=== PATIENT | male | born 1940 | race Caucasian/White ===

== ENCOUNTER → 2017-10-21 | Outpatient (CLI) | payer MEDICARE, OTHER ==
[2016-11-03 12:42] VITALS: BMI 30.6
[~2017-10-21] MED LIST: ACE325 PO; B2/V1TAB5 PO; BACDS PO; BRIM5DRO8 OU; CHOL10005 PO; GLUC1TAB13 PO; IBU200 PO; LEV75 PO; LOR5/325 PO; LOSA50TA72 PO; MET10 PO; METO-253 PO; MULT-1335 PO; MULT1TAB54 PO; OND4 PO; OSTEOBIFLEX PO; PAN40 PO; WAR25; WAR25 PO; WAR5 PO; [UNRECOGNIZED DRUG - CODE] PO
[2017-10-21 17:31] LABS: INR 2.33
== END ==
LOC: LAB 17:01
PROVIDERS: ATTEND Family Medicine
DX: I48.0 Paroxysmal atrial fibrillation (principal)
CPT/HCPCS: 36415; 85610

== ENCOUNTER 2017-11-26 18:04 | Emergency (ER) | payer MEDICARE, OTHER ==
[2016-11-03 12:42] VITALS: Wt 104.3 kg
[~2017-11-26 18:04] MED LIST changes: -MECL25TA9 PO; -ONDA4TAB PO; -SCOP1PAT16 TD; -SOTA120T25 PO; -SULF-198 PO
--- NOTE | 2017-11-26 18:25 | ER Report ---
History and Physical Time Seen By MD: 18:05 Hx. of Stated Complaint: sudden onset extreme nausea and diaphoresis and dizziness HPI/ROS CHIEF COMPLAINT: dizziness, nausea and vomiting HISTORY OF PRESENT ILLNESS: This is a 77 year old male. He was feeling okay earlier today. This afternoon sudden onset of dizziness. This is a vertigo type dizziness which is worse with position change and worse with tuning head from side to side. Diaphoresis, nausea and vomiting. He feels short of breath with this. He denies any chest pain. No vision changes. He has mild headache. No fevers or recent illness. He is on Warfarin for chronic Atrial fibrillation. Has been seeing urology for evaluation or bladder cancer and recurrent bladder masses, had surgery on Wednesday. REVIEW OF SYSTEMS: Constitutional: [No fever or chills.] Eyes: [No discharge.] [No vision changes.] ENT: [No sore throat.] [No congestion.] [No hearing changes.] Cardiovascular: [No chest pain.] [No palpitations.] Respiratory: [No cough.] [No shortness of breath.] Gastrointestinal: [No abdominal pain.] [No nausea or vomiting.] [No change in bowel movements.] [No blood in the stool or melena.] Genitourinary: [No dysuria.] [No hematuria.] [No frequency] Musculoskeletal: [No back pain.] [No extremity pain.] Skin: [No rashes.] [No bruising.] Neurological: [No numbness.] [No weakness.] [No headache.] Allergies: Coded Allergies: Penicillins (Verified Allergy, Mild, HIVES, 07/17/17) Home Meds Active Scripts Ondansetron (ZOFRAN ODT) 4 Mg Tab.rapdis, 4 MG PO Q6H Y for NAUSEA/VOMITING, # 20 TAB.GLEN 0 Refills Prov:PAM COVINGTON MD 11/26/17 Scopolamine (Scopolamine) 1 Mg/3 Day Patch.td.3, 1 PATCH.72H TD Q3D Y for DIZZINESS, #5 PATCH.72H 0 Refills Prov:PAM COVINGTON MD 11/26/17 Meclizine Hcl (MECLIZINE HCL) 25 Mg Tablet, 25 MG PO Q8H Y for DIZZINESS, #20 TAB 0 Refills Prov:PAM COVINGTON MD 11/26/17 Sulfamethoxazole/Trimet 800-160 Mg Tab (BACTRIM DS TABLET) 1 Each Tablet, 1 TAB PO Q12H, #10 TAB 0 Refills Prov:PAM COVINGTON MD 11/26/17 Metoprolol Tartrate (METOPROLOL TARTRATE) 50 Mg Tab, 50 MG PO BID, #60 TAB Prov:VIDYAJANN DO 11/04/16 Reported Medications Sotalol Hcl (SOTALOL) 120 Mg Tablet, 120 MG PO 11/26/17 Losartan Potassium (LOSARTAN POTASSIUM) 50 Mg Tablet, 50 MG PO QDAY 07/17/17 Cholecalciferol (Vitamin D3) (VITAMIN D3) 1,000 Unit Tablet, 2000 UNIT PO QDAY, TAB 11/09/16 Multivitamin (MULTI-VITAMIN DAILY) 1 Each Tablet, 1 EACH PO QDAY 11/02/16 Brimonidine Tartrate 0.2% Drops (BRIMONIDINE TARTRATE 0.2% DROPS) 5 Ml Drops, 1 ML OU TID, ML 11/02/16 B2/Vit A,C & E/Lut/Zeaxanth/Mn (Icaps Tablet) 1 Tab.sa Tablet.sa, 1 TAB.SA PO DAILY, 0 Refills 09/21/09 Warfarin Sod (Coumadin (Or Equiv)) 2.5 Mg Tab, 2.5 MG PO QDAY, 0 Refills 09/21/09 Levothyroxine Sodium (Synthroid/Levothroid) 0.075 Mg Tab, 0.075 MG PO QDAY 09/21/09 Reviewed Nurses Notes: Yes Smoking Status: Former Smoker Hx Substance Use Disorder: No Hx Alcohol Use: Yes Constitutional Vital Sign - Last 24 Hours 11/26/17 11/26/17 11/26/17 11/26/17 18:06 18:08 18:14 18:19 Temp 97.4 Pulse 86 98 Resp 18 B/P (MAP) 160/127 137/128 (131) 160/127 (138) Pulse Ox 97 96 O2 Delivery Room Air 11/26/17 11/26/17 11/26/17 11/26/17 18:24 18:27 18:34 18:44 Pulse 95 99 ??? Resp 18 13 B/P (MAP) 142/106 (118) Pulse Ox 95 94 311/26/17 11/26/17 11/26/17 18:49 18:54 19:04 19:14 Pulse ? 102 Resp 19 B/P (MAP) 162/110 (127) Pulse Ox 96 O2 Flow Rate 2.0 11/26/17 11/26/17 11/26/17 11/26/17 19:24 19:29 19:44 19:52 Pulse 85 111 101 Resp 12 17 8 B/P (MAP) 169/130 (143) Pulse Ox 95 97 93 11/26/17 11/26/17 11/26/17 11/26/17 19:54 19:59 20:00 20:14 Pulse 112 98 Resp 19 16 B/P (MAP) 139/80 (99) 142/117 (125) Pulse Ox 96 11/26/17 11/26/17 11/26/17 11/26/17 20:20 20:25 20:30 20:35 Pulse 105 107 Resp 15 15 B/P (MAP) 149/87 (107) 144/108 (120) Pulse Ox 97 96 11/26/17 11/26/17 11/26/17 11/26/17 20:45 20:55 21:00 21:02 Pulse 109 104 Resp 13 21 B/P (MAP) 145/116 (126) 119/94 (102) 124/78 (93) Pulse Ox 96 96 11/26/17 11/26/17 11/26/17 11/26/17 21:04 21:05 21:15 21:25 Pulse 68 80 74 Resp 16 11 15 B/P (MAP) 131/82 (98) 140/91 (107) Pulse Ox 96 94 96 11/26/17 11/26/17 11/26/17 21:27 21:30 21:45 Temp 97.4 Pulse 76 77 Resp 15 14 B/P (MAP) 121/61 (81) 116/59 (78) Pulse Ox 96 96 Intake and Output 11/26/17 11/26/17 11/27/17 15:00 23:00 07:00 Intake Total 1000 ml Balance 1000 ml Physical Exam General Appearance: The patient is alert. He is in acute distress due to the nausea and dizziness. Eyes: Pupils are equal, round. Reactive to light. No pallor, injection or icterus. Extraocular movements are intact. No nystagmus noted. ENT: Mucous membranes are moist. Normal oral mucosa. Posterior oropharynx is normal. Normal tympanic membranes and canals. Neck: Supple and non tender. No lymphadenopathy. Respiratory: Breathing easily and unlabored. Lungs are clear to auscultation. Cardiovascular: Regular rate and rhythm. No murmurs, gallops or rubs. Normal capillary refill. No edema. Gastrointestinal: Abdomen is soft, diffuse discomfort. Nondistended. Normal active bowel sounds. No costovertebral angle tenderness with percussion. Neurological: Alert and oriented x3. Cranial nerves with eye exam as noted above. Midline tongue, symmetric palate elevation. No facial droop. Normal sensation. No numbness or weakness in the extremities. Dizziness is a vertigo component. Worsens with turning head to the side or sitting up or laying back. [ ] Skin: Warm and dry. No rashes. Musculoskeletal: Extremities are nontender. No tenderness in palpation of the cervical, thoracic and lumbar spine. DIFFERENTIAL DIAGNOSIS: After history and physical exam, differential diagnosis was considered for dizziness including but not limited to peripheral and central causes of vertigo, orthostatic causes including dehydration, and blood loss. Also with elevated blood pressure. Has not taken evening medications ( Metoprolol and Sotalol). Will watch pressures and determine if dizziness is due to hypotension or orthostasis prior to giving these medicines. Medical Decision Making Data Points Result Diagram: 11/26/17 1800 11/26/17 1800 Laboratory Hematology Test 11/26/17 18:00 11/26/17 19:55 Red Blood Count 5.39 M/uL (4.00-5.60) Mean Corpuscular Volume 93.0 fL (80.0-96.0) Mean Corpuscular Hemoglobin 31.8 pg (26.0-33.0) Mean Corpuscular Hemoglobin Concent 34.2 g/dL (32.0-36.0) Red Cell Distribution Width 14.2 % (11.5-14.5) Mean Platelet Volume 9.3 fL (7.2-11.1) Neutrophils (%) (Auto) 52.2 % (39.4-72.5) Lymphocytes (%) (Auto) 33.9 % (17.6-49.6) Monocytes (%) (Auto) 12.2 % (4.1-12.4) Eosinophils (%) (Auto) 1.4 % (0.4-6.7) Basophils (%) (Auto) 0.3 % (0.3-1.4) Nucleated RBC Relative Count (auto) 0.0 /100WBC Neutrophils # (Auto) 4.2 K/uL (2.0-7.4) Lymphocytes # (Auto) 2.7 K/uL (1.3-3.6) Monocytes # (Auto) 1.0 K/uL (0.3-1.0) Eosinophils # (Auto) 0.1 K/uL (0.0-0.5) Basophils # (Auto) 0.0 K/uL (0.0-0.1) Nucleated RBC Absolute Count (auto) 0.00 K/uL Prothrombin Time 22.6 seconds (12.0-14.4) Prothromb Time International Ratio 1.94 Activated Partial Thromboplast Time 31 seconds (23-35) Sodium Level 141 mmol/L (137-145) Potassium Level 4.6 mmol/L (3.5-5.0) Chloride Level 108 mmol/L (98-107) Carbon Dioxide Level 21 mmol/L (22-30) Blood Urea Nitrogen 21 mg/dl (9-21) Creatinine 1.20 mg/dl (0.66-1.25) Glomerular Filtration Rate Calc 58.4 Random Glucose 109 mg/dl (75-110) Calcium Level 8.9 mg/dl (8.4-10.2) Total Bilirubin 0.6 mg/dl (0.2-1.3) Aspartate Amino Transf (AST/SGOT) 36 U/L (0-35) Alanine Aminotransferase (ALT/SGPT) 38 U/L (0-56) Alkaline Phosphatase 81 U/L (0-126) Troponin I < 0.012 ng/ml Total Protein 6.9 gm/dl (6.3-8.2) Albumin 3.6 g/dl (3.5-5.0) Amylase Level 93 U/L (0-110) Lipase 104 U/L (23-300) Urine Color Yellow Urine Clarity Clear Urine pH 7.0 pH (4.8-9.5) Urine Specific [place] 1.034 Urine Protein Negative mg/dL (NEGATIVE) Urine Glucose (UA) Negative mg/dL (NEGATIVE) Urine Ketones Trace mg/dL (NEGATIVE) Urine Blood Moderate (NEGATIVE) Urine Nitrite Negative (NEGATIVE) Urine Bilirubin Negative (NEGATIVE) Urine Urobilinogen Negative mg/dL (0.2-1.9) Urine Leukocyte Esterase Negative (NEGATIVE) Urine RBC 12 /HPF (0-2/HPF) Urine WBC 3 /HPF (0-5/HPF) Urine Squamous Epithelial Cells Few /LPF (</=FEW) Urine Bacteria Negative /HPF (NONE-FEW) Urine Mucus None /HPF (NONE-FEW) Chemistry Test 11/26/17 18:00 11/26/17 19:55 White Blood Count 8.0 k/uL (4.5-11.0) Red Blood Count 5.39 M/uL (4.00-5.60) Hemoglobin 17.1 g/dL (14.0-18.0) Hematocrit 50.1 % (42.0-52.0) Mean Corpuscular Volume 93.0 fL (80.0-96.0) Mean Corpuscular Hemoglobin 31.8 pg (26.0-33.0) Mean Corpuscular Hemoglobin Concent 34.2 g/dL (32.0-36.0) Red Cell Distribution Width 14.2 % (11.5-14.5) Platelet Count 146 K/uL (150-450) Mean Platelet Volume 9.3 fL (7.2-11.1) Neutrophils (%) (Auto) 52.2 % (39.4-72.5) Lymphocytes (%) (Auto) 33.9 % (17.6-49.6) Monocytes (%) (Auto) 12.2 % (4.1-12.4) Eosinophils (%) (Auto) 1.4 % (0.4-6.7) Basophils (%) (Auto) 0.3 % (0.3-1.4) Nucleated RBC Relative Count (auto) 0.0 /100WBC Neutrophils # (Auto) 4.2 K/uL (2.0-7.4) Lymphocytes # (Auto) 2.7 K/uL (1.3-3.6) Monocytes # (Auto) 1.0 K/uL (0.3-1.0) Eosinophils # (Auto) 0.1 K/uL (0.0-0.5) Basophils # (Auto) 0.0 K/uL (0.0-0.1) Nucleated RBC Absolute Count (auto) 0.00 K/uL Prothrombin Time 22.6 seconds (12.0-14.4) Prothromb Time International Ratio 1.94 Activated Partial Thromboplast Time 31 seconds (23-35) Glomerular Filtration Rate Calc 58.4 Calcium Level 8.9 mg/dl (8.4-10.2) Total Bilirubin 0.6 mg/dl (0.2-1.3) Aspartate Amino Transf (AST/SGOT) 36 U/L (0-35) Alanine Aminotransferase (ALT/SGPT) 38 U/L (0-56) Alkaline Phosphatase 81 U/L (0-126) Troponin I < 0.012 ng/ml Total Protein 6.9 gm/dl (6.3-8.2) Albumin 3.6 g/dl (3.5-5.0) Amylase Level 93 U/L (0-110) Lipase 104 U/L (23-300) Urine Color Yellow Urine Clarity Clear Urine pH 7.0 pH (4.8-9.5) Urine Specific [place] 1.034 Urine Protein Negative mg/dL (NEGATIVE) Urine Glucose (UA) Negative mg/dL (NEGATIVE) Urine Ketones Trace mg/dL (NEGATIVE) Urine Blood Moderate (NEGATIVE) Urine Nitrite Negative (NEGATIVE) Urine Bilirubin Negative (NEGATIVE) Urine Urobilinogen Negative mg/dL (0.2-1.9) Urine Leukocyte Esterase Negative (NEGATIVE) Urine RBC 12 /HPF (0-2/HPF) Urine WBC 3 /HPF (0-5/HPF) Urine Squamous Epithelial Cells Few /LPF (</=FEW) Urine Bacteria Negative /HPF (NONE-FEW) Urine Mucus None /HPF (NONE-FEW) Coagulation Test 11/26/17 18:00 Prothrombin Time 22.6 seconds Prothromb Time International Ratio 1.94 Activated Partial Thromboplast Time 31 seconds Urinalysis Test 11/26/17 19:55 Urine Color Yellow Urine Clarity Clear Urine pH 7.0 pH (4.8-9.5) Urine Specific [place] 1.034 Urine Protein Negative mg/dL (NEGATIVE) Urine Glucose (UA) Negative mg/dL (NEGATIVE) Urine Ketones Trace mg/dL (NEGATIVE) Urine Blood Moderate (NEGATIVE) Urine Nitrite Negative (NEGATIVE) Urine Bilirubin Negative (NEGATIVE) Urine Urobilinogen Negative mg/dL (0.2-1.9) Urine Leukocyte Esterase Negative (NEGATIVE) Urine RBC 12 /HPF (0-2/HPF) Urine WBC 3 /HPF (0-5/HPF) Urine Squamous Epithelial Cells Few /LPF (</=FEW) Urine Bacteria Negative /HPF (NONE-FEW) Urine Mucus None /HPF (NONE-FEW) EKG/Imaging EKG Interpretation 12 lead EKG: Rhythm: Atrial fibrillation, rate 90, one PVC [place]: normal QRS: Prolonged QTC ST segments: Nonspecific flattening, no ST elevation or depression noted Imaging CHEST SINGLE AP Indication: Dizziness. Comparison: 07/17/2017. Findings: Cardiomediastinal silhouette and pulmonary vessels within normal limits. Left subclavian pacemaker remains in place and unchanged. There is no focal infiltrate or lobar consolidation. No pneumothorax or pleural effusion. No nodule. Upper abdomen is unremarkable. No acute bony abnormality. IMPRESSION: 1. No acute cardiopulmonary process. Report Dictated By: Chris Orosco at 11/26/2017 7:[address] Head without contrast Indication: Dizziness. Comparison: 01/04/2015. Technique: Axial CT images were obtained through the brain from the skull base to the vertex without administration of IV contrast. Reformatted coronal and sagittal images were also obtained. One of the following dose optimization techniques was utilized in the performance of this exam: automated exposure control; adjustment of the mA and/ or kV according to the patient's size; or use of an iterative reconstruction technique. Specific details can be referenced in the facility's radiology CT exam operational policy. Findings: No evidence of mass, mass effect, or midline shift. No acute intracranial hemorrhage or acute territorial infarction. No extra-axial fluid collection or hydrocephalus. Age-related cerebral atrophy. 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 Lopez/white matter differentiation appears normal. Mild bilateral internal carotid artery calcifications. Bony structures show no fractures or lesions. Postsurgical changes to the maxillary sinuses. There is mild mucosal thickening seen in both maxillary and ethmoid sinuses and right frontal sinus. The remaining sinuses and mastoids visualized are clear. IMPRESSION: 1. Continued senescent changes without acute abnormality. 2. Mild sinus disease. Report Dictated By: Chris Orosco at 11/26/2017 7:[address] abdomen and pelvis with IV contrast Indication: Dizziness. Comparison: None available. . Technique: Axial CT images were obtained through the abdomen and pelvis during injection of nonionic iodinated intravenous contrast. Reformatted coronal and sagittal images were also obtained. One of the following dose optimization techniques was utilized in the performance of this exam: Automated exposure control; adjustment of the mA and/ or kV according to the patient's size; or use of an iterative reconstruction technique. Specific details can be referenced in the facility's radiology CT exam operational policy. Contrast: 75 ml of Isovue-370 IV contrast. Findings: Lower lung guevara: The anterior right middle lobe does show a 2 cm nodule which is minimally calcified and most likely benign calcified granuloma or nodule such as hamartoma. Lung bases are otherwise clear. Liver: No focal parenchymal abnormality of the liver. Biliary: Couple tiny gallstones without other gallbladder or biliary abnormality. Pancreas: Normal appearance. Spleen: Normal appearance. Adrenal glands: Unremarkable. Kidneys / retroperitoneum: No evidence of nephrolithiasis or hydronephrosis the right kidney shows 2 cysts, largest measuring 3.4 cm. Left kidney shows a subcentimeter cyst in superior pole. No solid renal lesions. Normal enhancement of both kidneys. Bowel / peritoneum / mesenteries: The colon shows no focal normality. The appendix is normal. The small bowel shows no focal normality or obstruction. Small hiatal hernia is present. The stomach shows no other focal normality. No free air, free fluid, fluid collections or areas of inflammation. Small umbilical and bilateral internal hernias containing fat. Lymph node assessment: No pathologic adenopathy identified. Pelvic structures: The urinary bladder does show mild anterior wall thickening with surrounding inflammatory changes. Pelvic structures show no other focal abnormality. Vessels: Mild atherosclerotic calcifications seen throughout a nonaneurysmal abdominal aorta and branches. Musculoskeletal / Body wall: No acute or aggressive osseous abnormality. Degenerative changes spine. IMPRESSION: 1. The urinary bladder does show mild wall thickening in the anterior aspect with surrounding inflammation. This is most likely due to acute cystitis. However follow-up exam or visualization the urinary bladder can assess for any lesion in the anterior wall. The kidneys show no indication of pyelonephritis. 2. Cholelithiasis. 3. Other chronic findings as above. Report Dictated By: Chris Orosco at 11/26/2017 7:43 PM ED Course/Re-evaluation Clinical Indication for ER IV: IV Access ED Course Initial labs drawn, orthostatics attempted, but the patient is to nauseous to do this now. Zofran and Meclizine given. No real improvement in either dizziness or nausea initially, but noted that not as dizzy if laying still. CT scan obtained without acute abnormalities. Labs and chest x-ray negative. EKG as noted above with atrial tachycardia. Still hypertensive and tachycardic at times. Gave Phenergan for nausea. Able to obtain orthostatics, negative for orthostasis. Started a scopolamine patch. Given his Sotalol and Metoprolol and watched for a time. Dizziness improving, but still dizzy when moving. Continues to be a vertigo dizziness. Patient finally able to give a urine sample. This is questionable and with the instrumentation and procedure on Wednesday, will start Bactrim DS and run a urine culture. Patient Still with hypertension despite about 50 minutes after medications. Dose of 20mg Labetalol brought pressures down to a safer range. Discharged home with Meclizine, Scopolamine patch, Zofran as noted. Recommended follow-up with Dr. Lin. Good hydration and rest over the weekend. Return if worsening. Take time getting up and around. Decision to Disposition Date: Nov 26, 2017 Decision to Disposition Time: 21:34 Depart Departure Latest Vital Signs Vital Signs Date Time Temp Pulse Resp B/P (MAP) Pulse Ox O2 Delivery O2 Flow Rate FiO2 11/26/17 21:45 77 14 116/59 (78) 96 11/26/17 21:27 97.4 11/26/17 18:49 2.0 11/26/17 18:06 Room Air Impression: Primary Impression: Dizziness Additional Impressions: Nausea & vomiting Elevated blood pressure reading Condition: Improved Disposition: HOME OR SELF-CARE Referrals: JANN LIN MD (PCP) New Scripts Ondansetron (ZOFRAN ODT) 4 Mg Tab.rapdis 4 MG PO Q6H Y for NAUSEA/VOMITING, #20 TAB.GLEN 0 Refills Prov: PAM COVINGTON MD 11/26/17 Scopolamine (Scopolamine) 1 Mg/3 Day Patch.td.3 1 PATCH.72H TD Q3D Y for DIZZINESS, #5 PATCH.72H 0 Refills Prov: PAM COVINGTON MD 11/26/17 Meclizine Hcl (MECLIZINE HCL) 25 Mg Tablet 25 MG PO Q8H Y for DIZZINESS, #20 TAB 0 Refills Prov: PAM COVINGTON MD 11/26/17 Sulfamethoxazole/Trimet 800-160 Mg Tab (BACTRIM DS TABLET) 1 Each Tablet 1 TAB PO Q12H, #10 TAB 0 Refills Prov: PAM COVINGTON MD 11/26/17 Patient Instructions: Dizziness (ED) Additional Instructions: Use a scopolamine patch, apply behind the ear for 3 days, then change and re- apply every three days to help with dizziness. Meclizine 25mg, one every 8 hours as needed for dizziness. Zofran 4mg, one every 6 hours as needed for nausea. No changes to blood pressure medicines. Call Dr. Lin's office on Wednesday for re-evaluation. Question of cellular changes in urine after procedure on Wednesday; will begin Bactrimi DS twice a day for 5 days for possible urinary infection. Urine culture is pending. Problem Qualifiers Additional Impressions: Nausea & vomiting Vomiting type: unspecified Vomiting Intractability: non-intractable Qualified Codes: R11.2 - Nausea with vomiting, unspecified PAM COVINGTON MD Nov 26, 2017 18:25
[2017-11-26] MEDS ORDERED: SOTA120T25 PO (18:28)
[2017-11-26] MEDS ORDERED: ONDANSETRON 4 MG/2 ML VIAL IVP ONE (18:30)
[2017-11-26] MEDS ORDERED: MECLIZINE HCL 25 MG TAB PO ONE (18:30)
--- NOTE | 2017-11-26 18:41 | EKG ---
FACILITY: [facility] [place] PATIENT NAME: SHEREE SANDRA : [id number] MR: [id number] V: [id number] EXAM DATE: ORDERING PHYSICIAN: PAM COVINGTON TECHNOLOGIST: AARON Test Reason : DIZZINESS Blood Pressure : / mmHG Vent. Rate : 090 BPM Atrial Rate : 097 BPM P-R Int : 000 ms QRS Dur : 074 ms QT Int : 382 ms P-R-T Axes : 000 050 043 degrees QTc Int : 467 ms Atrial fibrillation with an electronic ventricular paced beat Nonspecific T wave abnormality When compared with ECG of 17-JUL-2017 10:27, Relatively unchanged Confirmed by ZE BENTON ([id number]) on 11/28/2017 1:51:14 PM Referred By: ADRIA Confirmed By:ZE BENTON
[2017-11-26 18:46] LABS: INR 1.94
[2017-11-26 18:48] LABS: PLATELET COUNT, AUTOMATED 146 K/uL (150-450)
[2017-11-26] MEDS ORDERED: IOPAMIDOL 76% 75 ML INFUS BTL 75 ML ONE (18:59)
[2017-11-26] MEDS ORDERED: PROMETHAZINE 25 MG/ML 1 ML AMP IVP ONE (19:10)
--- NOTE | 2017-11-26 19:31 | RADIOLOGY IMAGING REPORT ---
[place] [facility] [place] NAME: Devante Curran : 1940 MR: [id number] V: [id number] EXAM DATE: ORDERING PHYSICIAN: PAM COVINGTON TECHNOLOGIST: Location: [facility] [place] Patient: Devante Curran : 1940 Visit/Account:[id number] Date of Sevice: 11/26/2017 CHEST SINGLE AP Indication: Dizziness. Comparison: 07/17/2017. Findings: Cardiomediastinal silhouette and pulmonary vessels within normal limits. Left subclavian pacemaker re humphrey in place and unchanged. There is no focal infiltrate or lobar consolidation. No pneumothorax or pleural effusion. No nodule. Upper abdomen is unremarkable. No acute bony abnormality. IMPRESSION: 1. No acute cardiopulmonary process. Report Dictated By: Chris Orosco at 11/26/2017 7:26 PM Report E-Signed By: Chris Orosco at 11/26/2017 7:27 PM WSN:[id number]
[2017-11-26] MEDS ORDERED: METOPROLOL TART 50 MG TAB PO ONE (19:45)
[2017-11-26] MEDS ORDERED: SOTALOL HCL 80 MG TAB PO ONE (19:45)
--- NOTE | 2017-11-26 19:46 | RADIOLOGY IMAGING REPORT ---
FACILITY: [facility] PATIENT NAME: Devante Curran : 1940 MR: [id number] V: [id number] EXAM DATE: ORDERING PHYSICIAN: PAM COVINGTON TECHNOLOGIST: Location: [facility] - [place] Patient: Devante Curran : 1940 Visit/Account:[id number] Date of Sevice: 11/26/2017 CT Head without contrast Indication: Dizziness. Comparison: 01/04/2015. Technique: Axial CT images were obtained through the brain from the skull base to the vertex without administration of IV contrast. Reformatted coronal and sagittal images were also obtained. One of the following dose optimization techniques was utilized in the performance of this exam: autom ated exposure control; adjustment of the mA and/or kV according to the patient's size; or use of an i terative reconstruction technique. Specific details can be referenced in the facility's radiology CT exam operational policy. Findings: No evidence of mass, mass effect, or midline shift. No acute intracranial hemorrhage or acute territorial infarction. No extra-axial fluid collection or hydrocephalus. Age-related cerebral atrophy. There is again perive ntricular white matter ischemic changes consistent small vessel disease and a stable previous lacunar infarct in the left basal ganglia. Lopez/white matter differentiation appears normal. Mild bilateral internal carotid artery calcifications. Bony structures show no fractures or lesions. Postsurgical changes to the maxillary sinuses. There is mild mucosal thickening seen in both maxillar y and ethmoid sinuses and right frontal sinus. The remaining sinuses and mastoids visualized are nestor r. IMPRESSION: 1. Continued senescent changes without acute abnormality. 2. Mild sinus disease. Report Dictated By: Chris Orosco at 11/26/2017 7:37 PM Report E-Signed By: Chris Orosco at 11/26/2017 7:43 PM WSN:[id number]
--- NOTE | 2017-11-26 19:55 | RADIOLOGY IMAGING REPORT ---
FACILITY: [facility] PATIENT NAME: Devante Curran : 1940 MR: [id number] V: [id number] EXAM DATE: ORDERING PHYSICIAN: PAM COVINGTON TECHNOLOGIST: [place] [facility] [place]: Devante Curran : 1940 Visit/Account:[id number] Date of Sevice: 11/26/2017 CT abdomen and pelvis with IV contrast Indication: Dizziness. Comparison: None available. . Technique: Axial CT images were obtained through the abdomen and pelvis during injection of nonioni c iodinated intravenous contrast. Reformatted coronal and sagittal images were also obtained. One of the following dose optimization techniques was utilized in the performance of this exam: Autom ated exposure control; adjustment of the mA and/or kV according to the patient's size; or use of an i terative reconstruction technique. Specific details can be referenced in the facility's radiology C T exam operational policy. Contrast: 75 ml of Isovue-370 IV contrast. Findings: Lower lung guevara: The anterior right middle lobe does show a 2 cm nodule which is minimally calcifie d and most likely benign calcified granuloma or nodule such as hamartoma. Lung bases are otherwise cl ear. Liver: No focal parenchymal abnormality of the liver. Biliary: Couple tiny gallstones without other gallbladder or biliary abnormality. Pancreas: Normal appearance. Spleen: Normal appearance. Adrenal glands: Unremarkable. Kidneys / retroperitoneum: No evidence of nephrolithiasis or hydronephrosis the right kidney shows 2 cysts, largest measuring 3.4 cm. Left kidney shows a subcentimeter cyst in superior pole. No solid re nal lesions. Normal enhancement of both kidneys. Bowel / peritoneum / mesenteries: The colon shows no focal normality. The appendix is normal. The sma ll bowel shows no focal normality or obstruction. Small hiatal hernia is present. The stomach shows n o other focal normality. No free air, free fluid, fluid collections or areas of inflammation. Small umbilical and bilateral in ternal hernias containing fat. Lymph node assessment: No pathologic adenopathy identified. Pelvic structures: The urinary bladder does show mild anterior wall thickening with surrounding in flammatory changes. Pelvic structures show no other focal abnormality. Vessels: Mild atherosclerotic calcifications seen throughout a nonaneurysmal abdominal aorta and bran ches. Musculoskeletal / Body wall: No acute or aggressive osseous abnormality. Degenerative changes spine. IMPRESSION: 1. The urinary bladder does show mild wall thickening in the anterior aspect with surrounding inflamm ation. This is most likely due to acute cystitis. However follow-up exam or visualization the urinary bladder can assess for any lesion in the anterior wall. The kidneys show no indication of pyelonephr itis. 2. Cholelithiasis. 3. Other chronic findings as above. Report Dictated By: Chris Orosco at 11/26/2017 7:43 PM Report E-Signed By: Chris Orosco at 11/26/2017 7:52 PM [id number]
[2017-11-26] MEDS ORDERED: EMS NS 0.9%(*) 1000 ML BAG 1,000 ML IV ONE (20:20)
[2017-11-26] MEDS ORDERED: LABETALOL HCL 100 MG/20ML VIAL IVP ONE (20:50)
[2017-11-26] MEDS ORDERED: DIAZEPAM 10 MG/2 ML SYR IVP ONE (20:55)
[2017-11-26] MEDS ORDERED: SCOPOLAMINE 1.5 MG PATCH TD ONE (20:55)
[2017-11-26] MEDS ORDERED: ONDANSETRON 4 MG ODT TH SL ONE (21:35)
[2017-11-26] MEDS ORDERED: TRIMETHOPRIM/SULFA 160-800 TH 2 TAB/BOTTLE PO ONE (21:35)
[2017-11-26] MEDS ORDERED: MECLIZINE HCL 12.5 MG TAB TH PO ONE (21:35)
[2017-11-26] MEDS ORDERED: ONDA4TAB PO (21:39)
[2017-11-26] MEDS ORDERED: SULF-198 PO (21:39)
[2017-11-26] MEDS ORDERED: SCOP1PAT16 TD (21:39)
[2017-11-26] MEDS ORDERED: MECL25TA9 PO (21:39)
[2017-11-26 21:45] VITALS: BP 116/59
== END 2017-11-26 22:18 | disposition home or self-care (01) ==
LOC: EDUNIT# 18:04 → ER 18:09
DX: R03.0 Elevated blood-pressure reading, without diagnosis of hypertension (principal); I10 Essential (primary) hypertension; R00.0 Tachycardia, unspecified; I48.91 Unspecified atrial fibrillation; Z79.01 Long term (current) use of anticoagulants
CPT/HCPCS: 70450; 71045; 74177; 81001; 82150; 83690; 84484; 85025; 85610; 85730; 87088; 93005; 96361; 96374; 96375; 99284; A9270; J2405; J2550; J3490; J8597; Q0162; Q9967; 82040; 82247; 82310; 82374; 82435; 82565; 82947; 84075; 84132; 84155; 84295; 84450; 84460; 84520; S0119

== ENCOUNTER → 2017-11-26 | Outpatient (CLI) | payer MEDICARE, OTHER ==
[2016-11-03 12:42] VITALS: BMI 30.6
[~2017-11-26] MED LIST changes: +MECL25TA9 PO; +ONDA4TAB PO; +SCOP1PAT16 TD; +SOTA120T25 PO; +SULF-198 PO
== END ==
LOC: AMB 17:49
PROVIDERS: ATTEND Nurse Practitioner
DX: R53.1 Weakness (principal); R42 Dizziness and giddiness
CPT/HCPCS: A0425; A0427

== ENCOUNTER 2018-02-12 17:18 | Emergency (ER) | payer MEDICARE, OTHER ==
[2016-11-03 12:42] VITALS: Wt 108.9 kg
[~2018-02-12 17:18] MED LIST changes: -HYDR-2966 PO; -METO25TA93 PO; -TRAM-420 PO; -WARF2TAB13 PO
[2018-02-12] MEDS ORDERED: ASPIRIN 81 MG CHEW PO ONE (17:35)
[2018-02-12 17:42] LABS: PLATELET COUNT, AUTOMATED 151 K/uL (150-450)
[2018-02-12 17:49] LABS: INR 1.64
--- NOTE | 2018-02-12 17:50 | EKG ---
FACILITY: [facility] PATIENT NAME: SHEREE SANDRA : [id number] MR: [id number] V: [id number] EXAM DATE: ORDERING PHYSICIAN: ROMMEL MARADIAGA TECHNOLOGIST: RAE Eaton Reason : Blood Pressure : / mmHG Vent. Rate : 075 BPM Atrial Rate : 075 BPM P-R Int : 162 ms QRS Dur : 084 ms QT Int : 442 ms P-R-T Axes : 035 042 033 degrees QTc Int : 493 ms Electronic atrial pacemaker Nonspecific T wave abnormality Prolonged QT Abnormal ECG When compared with ECG of 26-NOV-2017 18:29, Electronic atrial pacemaker has replaced Atrial fibrillation Confirmed by JANN DASILVA ([id number]) on 02/13/2018 2:50:09 PM Referred By: ASHWINI Confirmed By:JANN DASILVA
[2018-02-12] MEDS ORDERED: ONDANSETRON 4 MG/2 ML VIAL IVP ONE ×2 (18:00→18:40)
--- NOTE | 2018-02-12 18:06 | ER Report ---
History and Physical Time Seen By MD: 18:04 HPI/ROS CHIEF COMPLAINT: Dizziness, vomiting HISTORY OF PRESENT ILLNESS: 77-year-old male presents ambulatory to the ER complaining of dizziness and vomiting. He was recently prescribed tramadol by his primary care physician, Dr. Aguilar for pain relief. He took 1 tramadol last night 50 mg without any problems. This morning he took 2 and then he began to have vomiting and dizziness. He describes this as being worse than a previous episode when he was seen in late October, at which time he had extensive evaluation including a head CT, which was unremarkable. There was some difficulty in controlling his nausea and vomiting. At that time as well. Patient was discharged home on scopolamine patches, Zofran and meclizine. He also had an abdominal CT at that time which was unremarkable except for bladder masses. Patient notes reproducible vertigo and increased dizziness with head movement. REVIEW OF SYSTEMS: Respiratory: No cough, no dyspnea. Cardiovascular: No chest pain, no palpitations. Gastrointestinal: As above Musculoskeletal: No back pain. Allergies: Coded Allergies: Penicillins (Verified Allergy, Mild, HIVES, 07/17/17) Home Meds Active Scripts Ondansetron (ZOFRAN ODT) 4 Mg Tab.rapdis, 4 MG PO every 6 hours Y for NAUSEA/ VOMITING, #15 TAB TAKE 1 TABLET BY MOUTH EVERY 12 HOURS Prov:LISA BEAVER DO 02/12/18 Scopolamine (Scopolamine) 1 Mg/3 Day Patch.td.3, 1 PATCH.72H TD Q3D Y for DIZZINESS, #5 PATCH.72H 0 Refills Prov:PAM COVINGTON MD 11/26/17 Metoprolol Tartrate (METOPROLOL TARTRATE) 50 Mg Tab, 50 MG PO BID, #60 TAB Prov:JANN DASILVA DO 11/04/16 Reported Medications Tramadol Hcl (TRAMADOL HCL) 50 Mg Tablet, 50-100 MG PO Q4-6H, TAB 02/12/18 Hydrochlorothiazide (HYDROCHLOROTHIAZIDE) 25 Mg Tablet, 1 TAB PO QDAY, TAB 02/12/18 Metoprolol Tartrate (METOPROLOL TARTRATE) 25 Mg Tablet, 1 TAB PO BID, TAB 02/12/18 Warfarin Sodium (WARFARIN SODIUM) 2 Mg Tablet, 2 MG PO QDAY, TAB 02/12/18 Sotalol Hcl (SOTALOL) 120 Mg Tablet, 120 MG PO 11/26/17 Losartan Potassium (LOSARTAN POTASSIUM) 50 Mg Tablet, 50 MG PO QDAY 07/17/17 Cholecalciferol (Vitamin D3) (VITAMIN D3) 1,000 Unit Tablet, 2000 UNIT PO QDAY, TAB 11/09/16 Multivitamin (MULTI-VITAMIN DAILY) 1 Each Tablet, 1 EACH PO QDAY 11/02/16 Brimonidine Tartrate 0.2% Drops (BRIMONIDINE TARTRATE 0.2% DROPS) 5 Ml Drops, 1 ML OU TID, ML 11/02/16 Levothyroxine Sodium (Synthroid/Levothroid) 0.075 Mg Tab, 0.075 MG PO QDAY 09/21/09 Discontinued Reported Medications B2/Vit A,C & E/Lut/Zeaxanth/Mn (Icaps Tablet) 1 Tab.sa Tablet.sa, 1 TAB.SA PO DAILY, 0 Refills 09/21/09 Warfarin Sod (Coumadin (Or Equiv)) 2.5 Mg Tab, 2.5 MG PO QDAY, 0 Refills 09/21/09 Discontinued Scripts Ondansetron (ZOFRAN ODT) 4 Mg Tab.rapdis, 4 MG PO Q6H Y for NAUSEA/VOMITING, # 20 TAB.GLEN 0 Refills Prov:PAM COVINGTON MD 11/26/17 Meclizine Hcl (MECLIZINE HCL) 25 Mg Tablet, 25 MG PO Q8H Y for DIZZINESS, #20 TAB 0 Refills Prov:PAM COVINGTON MD 11/26/17 Sulfamethoxazole/Trimet 800-160 Mg Tab (BACTRIM DS TABLET) 1 Each Tablet, 1 TAB PO Q12H, #10 TAB 0 Refills Prov:PAM COVINGTON MD 11/26/17 Reviewed Nurses Notes: Yes Old Medical Records Reviewed: Yes Smoking Status: Former Smoker Hx Substance Use Disorder: No Hx Alcohol Use: Yes (not anymore ) Constitutional Vital Sign - Last 24 Hours 02/12/18 02/12/18 02/12/18 02/12/18 17:20 17:20 17:39 17:48 Temp 97.5 Pulse 74 75 Resp 18 10 B/P (MAP) 160/90 160/90 (113) Pulse Ox 94 96 O2 Delivery Nasal Cannula O2 Flow Rate 2.0 02/12/18 02/12/18 02/12/18 02/12/18 18:00 18:18 18:30 18:48 Pulse 70 73 Resp 13 10 B/P (MAP) 161/94 (116) 152/76 (101) Pulse Ox 96 93 02/12/18 02/12/18 02/12/18 02/12/18 19:00 19:30 20:00 20:05 Pulse 69 63 63 ??? Resp 8 9 B/P (MAP) 152/82 (105) 158/90 (112) 149/86 (107) Pulse Ox 95 95 96 02/12/18 02/12/18 02/12/18 02/12/18 20:30 20:35 21:00 21:32 Pulse 71 85 Resp 16 B/P (MAP) 137/78 (97) 122/67 (85) 142/82 (102) Pulse Ox 97 86 O2 Delivery Room Air Physical Exam Vital signs stable, afebrile, pulse ox normal General Appearance: The patient is alert, has no immediate need for airway protection and no current signs of toxicity. Mild distress, vomiting and dry heaves HEENT: Pupils equal and round no injection. TMs normal, oropharynx with mild erythema, no exudate Respiratory: Chest is non tender, lungs are clear to auscultation. Cardiac: regular rate and rhythm Gastrointestinal: Abdomen is soft and non tender, no masses, bowel sounds normal. Musculoskeletal: Neck: Neck is supple and non tender. Extremities have full range of motion and are non tender. Skin: No rashes or lesions. DIFFERENTIAL DIAGNOSIS: After history and physical exam differential diagnosis was considered for vertigo including but not limited to peripheral causes such as benign positional vertigo, Mnire's disease, viral labyrinthitis and central causes such as CVA, and tumor. Medical Decision Making Data Points Result Diagram: 02/12/18 1701 02/12/18 1701 Laboratory Hematology Test 02/12/18 17:01 Red Blood Count 5.43 M/uL (4.00-5.60) Mean Corpuscular Volume 94.3 fL (80.0-96.0) Mean Corpuscular Hemoglobin 32.2 pg (26.0-33.0) Mean Corpuscular Hemoglobin Concent 34.1 g/dL (32.0-36.0) Red Cell Distribution Width 14.0 % (11.5-14.5) Mean Platelet Volume 9.0 fL (7.2-11.1) Neutrophils (%) (Auto) 75.2 % (39.4-72.5) Lymphocytes (%) (Auto) 20.6 % (17.6-49.6) Monocytes (%) (Auto) 3.8 % (4.1-12.4) Eosinophils (%) (Auto) 0.2 % (0.4-6.7) Basophils (%) (Auto) 0.2 % (0.3-1.4) Nucleated RBC Relative Count (auto) 0.1 /100WBC Neutrophils # (Auto) 5.5 K/uL (2.0-7.4) Lymphocytes # (Auto) 1.5 K/uL (1.3-3.6) Monocytes # (Auto) 0.3 K/uL (0.3-1.0) Eosinophils # (Auto) 0.0 K/uL (0.0-0.5) Basophils # (Auto) 0.0 K/uL (0.0-0.1) Nucleated RBC Absolute Count (auto) 0.01 K/uL Prothrombin Time 19.7 seconds (12.0-14.4) Prothromb Time International Ratio 1.64 Activated Partial Thromboplast Time 31 seconds (23-35) Sodium Level 139 mmol/L (137-145) Potassium Level 4.4 mmol/L (3.5-5.0) Chloride Level 104 mmol/L (98-107) Carbon Dioxide Level 24 mmol/L (22-30) Blood Urea Nitrogen 18 mg/dl (9-21) Creatinine 0.90 mg/dl (0.66-1.25) Glomerular Filtration Rate Calc > 60.0 Random Glucose 145 mg/dl (75-110) Calcium Level 9.1 mg/dl (8.4-10.2) Total Bilirubin 1.0 mg/dl (0.2-1.3) Aspartate Amino Transf (AST/SGOT) 34 U/L (0-35) Alanine Aminotransferase (ALT/SGPT) 35 U/L (0-56) Alkaline Phosphatase 87 U/L (0-126) Troponin I < 0.012 ng/ml B-Type Natriuretic Peptide 62 pg/ml (0-100) Total Protein 7.4 g/dl (6.3-8.2) Albumin 4.1 g/dl (3.5-5.0) Chemistry Test 02/12/18 17:01 White Blood Count 7.3 k/uL (4.5-11.0) Red Blood Count 5.43 M/uL (4.00-5.60) Hemoglobin 17.5 g/dL (14.0-18.0) Hematocrit 51.2 % (42.0-52.0) Mean Corpuscular Volume 94.3 fL (80.0-96.0) Mean Corpuscular Hemoglobin 32.2 pg (26.0-33.0) Mean Corpuscular Hemoglobin Concent 34.1 g/dL (32.0-36.0) Red Cell Distribution Width 14.0 % (11.5-14.5) Platelet Count 151 K/uL (150-450) Mean Platelet Volume 9.0 fL (7.2-11.1) Neutrophils (%) (Auto) 75.2 % (39.4-72.5) Lymphocytes (%) (Auto) 20.6 % (17.6-49.6) Monocytes (%) (Auto) 3.8 % (4.1-12.4) Eosinophils (%) (Auto) 0.2 % (0.4-6.7) Basophils (%) (Auto) 0.2 % (0.3-1.4) Nucleated RBC Relative Count (auto) 0.1 /100WBC Neutrophils # (Auto) 5.5 K/uL (2.0-7.4) Lymphocytes # (Auto) 1.5 K/uL (1.3-3.6) Monocytes # (Auto) 0.3 K/uL (0.3-1.0) Eosinophils # (Auto) 0.0 K/uL (0.0-0.5) Basophils # (Auto) 0.0 K/uL (0.0-0.1) Nucleated RBC Absolute Count (auto) 0.01 K/uL Prothrombin Time 19.7 seconds (12.0-14.4) Prothromb Time International Ratio 1.64 Activated Partial Thromboplast Time 31 seconds (23-35) Glomerular Filtration Rate Calc > 60.0 Calcium Level 9.1 mg/dl (8.4-10.2) Total Bilirubin 1.0 mg/dl (0.2-1.3) Aspartate Amino Transf (AST/SGOT) 34 U/L (0-35) Alanine Aminotransferase (ALT/SGPT) 35 U/L (0-56) Alkaline Phosphatase 87 U/L (0-126) Troponin I < 0.012 ng/ml B-Type Natriuretic Peptide 62 pg/ml (0-100) Total Protein 7.4 g/dl (6.3-8.2) Albumin 4.1 g/dl (3.5-5.0) Coagulation Test 02/12/18 17:01 Prothrombin Time 19.7 seconds Prothromb Time International Ratio 1.64 Activated Partial Thromboplast Time 31 seconds EKG/Imaging EKG Interpretation 12 lead EK Rhythm: Electronic pacemaker, rate 75 bpm Dumas: normal QRS: Prolonged QT ST segments: Nonspecific T wave abnormality,, no gross overall evidence of ischemia ED Course/Re-evaluation Clinical Indication for ER IV: Hydration, IV Access ED Course Patient was admitted to an examination room. H&P was done. The differential diagnoses was considered. Patient with dizziness and vomiting. He thinks is related to the recent medication tramadol, which he was started on. His diagnostic evaluation including CT scan was unremarkable. Patient responded well to Zofran IV and fluid hydration. Patient's mildly hypoxic. Likely secondary to the Phenergan, which was administered to control his vomiting. Patient was offered admission for his hypoxia. He declined. I also did offer to set him up with home O2, but he declined. Patient will follow-up with his primary care physician. He's advised to discontinue the tramadol. Protection for Zofran as provided for vomiting control. Patient has a history of chronic vertigo and dizziness. This episode is worse than his previous episode from 3 months ago. I do not think the patient's symptoms are due to tramadol, but he seems to associate that with his symptoms. I think he had worsening of his underlying vertigo. Decision to Disposition Date: Feb 12, 2018 Decision to Disposition Time: 21:18 Depart Departure Latest Vital Signs Vital Signs Date Time Temp Pulse Resp B/P (MAP) Pulse Ox O2 Delivery O2 Flow Rate FiO2 02/12/18 21:32 85 16 142/82 (102) 86 Room Air 02/12/18 17:20 97.5 02/12/18 17:20 2.0 Impression: Primary Impression: Nausea & vomiting Additional Impressions: Dizziness Vertigo Atrial fibrillation Condition: Improved Disposition: HOME OR SELF-CARE Referrals: JANN LIN MD (PCP) New Scripts Ondansetron (ZOFRAN ODT) 4 Mg Tab.rapdis 4 MG PO every 6 hours Y for NAUSEA/VOMITING, #15 TAB TAKE 1 TABLET BY MOUTH EVERY 12 HOURS Prov: LISA BEAVER DO 02/12/18 Patient Instructions: Dizziness (ED), Vertigo (ED) Additional Instructions: Take meclizine 25 mg 3 times daily as needed for dizziness, or motion sickness Use ondansetron 4 mg under the tongue every 6 hours to control vomiting as needed Use the leftover scopolamine patches you have if necessary Stop taking tramadol Follow-up with your primary care Dr. Minaya early next week Problem Qualifiers Primary Impression: Nausea & vomiting Vomiting type: unspecified Vomiting Intractability: unspecified Qualified Codes: R11.2 - Nausea with vomiting, unspecified Additional Impressions: Atrial fibrillation Atrial fibrillation type: chronic Qualified Codes: I48.2 - Chronic atrial fibrillation LISA BEAVER DO Feb 12, 2018 18:06
[2018-02-12] MEDS ORDERED: WARF2TAB13 PO (18:27)
[2018-02-12] MEDS ORDERED: METO25TA93 PO (18:27)
[2018-02-12] MEDS ORDERED: TRAM-420 PO (18:28)
[2018-02-12] MEDS ORDERED: HYDR-2966 PO (18:28)
--- NOTE | 2018-02-12 18:34 | RADIOLOGY IMAGING REPORT ---
FACILITY[place] [facility] [place]IENT NAME: Devante Curran : 1940 MR: [id number] V: [id number] EXAM DATE: ORDERING PHYSICIAN: ROMMEL MARADIAGA TECHNOLOGIST: Location: [facility] [place]: Devante Curran : 1940 Visit/Account:[id number] Date of Sevice: 02/12/2018 CHEST PA AND LAT History: Chest pain, nausea. Dizziness. Comparison 11/26/2017. FINDINGS: Right lower lobe pulmonary nodule grossly unchanged. Cardiac mediastinal contour within normal limits . New mild atelectasis or infiltrate left lateral lung base. No effusion or pneumothorax. Cardiac pac er overlies the left chest. IMPRESSION: New mild atelectasis or infiltrate in the left lateral lung base, otherwise no evidence of acute card iac pulmonary disease. Report Dictated By: Stuart Crowe MD at 02/12/2018 6:29 PM Report E-Signed By: Stuart Crowe MD at 02/12/2018 6:31 PM WSN:[id number]
[2018-02-12] MEDS ORDERED: MECLIZINE HCL 25 MG TAB PO ONE (18:40)
[2018-02-12] MEDS ORDERED: PROMETHAZINE 25 MG/ML 1 ML AMP IVP ONE (18:40)
[2018-02-12] MEDS ORDERED: IOPAMIDOL 76% 100 ML INFUS BTL 100 ML ONE (20:04)
[2018-02-12] MEDS ORDERED: NS 0.9% 25 ML BAG 50 ML ONE (20:04)
--- NOTE | 2018-02-12 20:49 | RADIOLOGY IMAGING REPORT ---
FACILITY: [facility] - [place] PATIENT NAME: Devante Curran : 1940 MR: [id number] V: [id number] EXAM DATE: ORDERING PHYSICIAN: LISA BEAVER TECHNOLOGIST: Location: [facility] - [place] Patient: Devante Curran : 1940 Visit/Account:[id number] Date of Sevice: 02/12/2018 EXAMINATION: CTA of the chest with IV contrast HISTORY: Hypoxia. Dizzy. TECHNIQUE: Pulmonary embolus protocol - Thin axial CT images of the chest were obtained with IV con trast during maximal pulmonary arterial opacification. Reconstruction of the source data includes mul tiplanar 2D coronal and sagittal reconstructed images, and 3D coronal and sagittal MIP images. Repres entative images have been stored on PACS. One of the following dose optimization techniques was utilized in the performance of this exam: Autom ated exposure control; adjustment of the mA and/or kV according to the patient's size; or use of an i terative reconstruction technique. Specific details can be referenced in the facility's radiology C T exam operational policy. Contrast: 100 mL of IV Isovue-370. COMPARISON: 11/02/2016 and 06/29/2011. FINDINGS: Pulmonary arteries: The pulmonary arteries are well opacified, without suspicious filling defect. Heart, aorta, and great vessels: Normal caliber thoracic aorta, without aneurysm or dissection. Vasc ular calcifications, including coronary artery calcifications. Normal heart size. No pericardial effu maicol. Left-sided cardiac pacemaker, with lead tips in the RA and RV. Lungs and pleura: Mild scarring or atelectasis in the lung bases. No suspicious focal consolidation. Stable lobular nodule in the right middle lobe with calcification, measuring 1.7 x 1.6 cm. This is u nchanged from prior studies dating back to 06/29/2011 compatible with a benign entity. This may repre sent a large partially calcified granuloma or a hamartoma. Small calcified granuloma in the left uppe r lobe posteriorly is stable. No pleural effusion or pneumothorax. The central airways are patent. Mediastinum and ree: Negative. Visualized upper abdomen: Cholelithiasis. Chest wall: Negative. Bones: Negative. IMPRESSION: 1. No evidence of pulmonary embolism. 2. No other acute findings in the chest. 3. Mild scarring or atelectasis in the lung bases. No new focal consolidation. 4. Stable partially calcified 1.7 cm nodule in the right middle lobe, compatible with a large granulo ma or possible hamartoma. This is unchanged from prior studies dated back to 2010, compatible with a benign entity. 5. Cholelithiasis. Report Dictated By: Italo Hull MD at 02/12/2018 8:35 PM Report E-Signed By: Italo Hull MD at 02/12/2018 8:44 PM WSN:[id number]
[2018-02-12] MEDS ORDERED: ONDA4TAB PO (21:21)
[2018-02-12 21:32] VITALS: BP 142/82
== END 2018-02-12 21:40 | disposition home or self-care (01) ==
LOC: ER 17:25
DX: R11.2 Nausea with vomiting, unspecified (principal); R42 Dizziness and giddiness; I48.2 Chronic atrial fibrillation
CPT/HCPCS: 71046; 71275; 83880; 84484; 85025; 85610; 85730; 93005; 96374; 96375; 99284; A9270; J2405; J2550; J8597; Q9967; 82040; 82247; 82310; 82374; 82435; 82565; 82947; 84075; 84132; 84155; 84295; 84450; 84460; 84520

== ENCOUNTER → 2018-02-12 | Outpatient (CLI) | payer MEDICARE, OTHER ==
[2016-11-03 12:42] VITALS: BMI 30.6
[~2018-02-12] MED LIST changes: +HYDR-2966 PO; +MECL25TA9 PO; +METO25TA93 PO; +ONDA4TAB PO; +SCOP1PAT16 TD; +SOTA120T25 PO; +SULF-198 PO; +TRAM-420 PO; +WARF2TAB13 PO
== END ==
LOC: AMB 16:53
PROVIDERS: ATTEND Nurse Practitioner
DX: R11.10 Vomiting, unspecified (principal)
CPT/HCPCS: A0425; A0427

== ENCOUNTER → 2018-02-15 | Outpatient (CLI) | payer MEDICARE, OTHER ==
[2016-11-03 12:42] VITALS: BMI 30.6
[~2018-02-15] MED LIST changes: +HYDR-2966 PO; +METO25TA93 PO; +TRAM-420 PO; +WARF2TAB13 PO
--- NOTE | 2018-02-15 10:42 | RADIOLOGY IMAGING REPORT ---
FACILITY: [facility] [place] PATIENT NAME: Devante Curran : 1940 MR: [id number] V: [id number] EXAM DATE: ORDERING PHYSICIAN: JANN LIN TECHNOLOGIST: Location: [facility] Patient: Devante Curran : 1940 Visit/Account:[id number] Date of Sevice: 02/15/2018 Exam type: LUMBAR SPINE 2 OR 3 VIEW History: Low back pain Comparison: MR lumbar spine May 13, 2007. Findings: There is a dextroconvex scoliosis of the lumbar spine. There are five nonrib-bearing lumbar-type elvi tebral bodies present. There is moderate disc space narrowing L2-3, L3-4 and L4-5. Mild to moderate disc space narrowing L5-S1 T12-L1 and L1-L2. There is a 3 mm anterior listhesis of L4 with respect L5. Marginal osteophytes are present throughout the visualized thoracolumbar spine. Incidentally no nora are moderate vascular calcifications in the abdominal aorta IMPRESSION: 1. 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 . Dextroconvex scoliosis Moderate vascular calcifications Report Dictated By: Sherry Angela MD at 02/15/2018 10:34 AM Report E-Signed By: Sherry Angela MD at 02/15/2018 10:37 AM WSN:[email or web address]
== END ==
LOC: RAD 09:17
PROVIDERS: ATTEND Family Medicine
DX: M47.896 Other spondylosis, lumbar region (principal); M41.86 Other forms of scoliosis, lumbar region; I25.10 Atherosclerotic heart disease of native coronary artery without angina pectoris
CPT/HCPCS: 72100

== ENCOUNTER 2018-05-14 07:42 | Emergency (ER) | payer MEDICARE, OTHER ==
[2016-11-03 12:42] VITALS: Wt 108.9 kg
[~2018-05-14 07:42] MED LIST changes: -LOSA50TA72 PO; +LOSA50TA74 PO
--- NOTE | 2018-05-14 07:44 | ER Report ---
History and Physical Time Seen By MD: 07:44 HPI/ROS CHIEF COMPLAINT: cold sx HISTORY OF PRESENT ILLNESS: Patient is a 77-year-old male who presents to the emergency department with cold-like symptoms over the past 2-3 days. Symptoms are primarily head cold symptoms to include nasal congestion mild cough and stuffiness and sore throat. Denies any fevers or chills. He denies any chest pressure or pain. Denies any abdominal pain, nausea, vomiting or diarrhea. He denies any known ill contacts. He denies any body aches but does report mild headache REVIEW OF SYSTEMS: Constitutional: No fever, no chills. Eyes: No discharge. ENT: Sore throat, nasal congestion Cardiovascular: No chest pain, no palpitations. Respiratory: Mild nonproductive cough no shortness of breath Gastrointestinal: No abdominal pain, no vomiting. Genitourinary: No hematuria. Musculoskeletal: No back pain. Skin: No rashes. Neurological: Mild headache Allergies: Coded Allergies: Penicillins (Verified Allergy, Mild, HIVES, 05/14/18) Home Meds Active Scripts Fluticasone Prop 50 Mcg Ns (FLONASE 50 MCG NS) 16 Gm [place].susp, 1 SPRAY NS BID, #1 BOT 0 Refills Prov:TRACEY MONTILLA MD 05/14/18 Metoprolol Tartrate (METOPROLOL TARTRATE) 50 Mg Tab, 50 MG PO BID, #60 TAB Prov:JANN DASILVA DO 11/04/16 Reported Medications Dorzolamide Hcl (DORZOLAMIDE HCL) 10 Ml Drops, 1 GTT OP TID 05/14/18 Metoprolol Tartrate (METOPROLOL TARTRATE) 25 Mg Tablet, 1 TAB PO BID, TAB 02/12/18 Warfarin Sodium (WARFARIN SODIUM) 2 Mg Tablet, 2 MG PO QDAY, TAB 02/12/18 Sotalol Hcl (SOTALOL) 120 Mg Tablet, 120 MG PO 11/26/17 Losartan Potassium (LOSARTAN POTASSIUM) 50 Mg Tablet, 50 MG PO QDAY 07/17/17 Cholecalciferol (Vitamin D3) (VITAMIN D3) 1,000 Unit Tablet, 2000 UNIT PO QDAY, TAB 11/09/16 Multivitamin (MULTI-VITAMIN DAILY) 1 Each Tablet, 1 EACH PO QDAY 11/02/16 Levothyroxine Sodium (Synthroid/Levothroid) 0.075 Mg Tab, 0.075 MG PO QDAY 09/21/09 Discontinued Reported Medications Tramadol Hcl (TRAMADOL HCL) 50 Mg Tablet, 50-100 MG PO Q4-6H, TAB 02/12/18 Hydrochlorothiazide (HYDROCHLOROTHIAZIDE) 25 Mg Tablet, 1 TAB PO QDAY, TAB 02/12/18 Brimonidine Tartrate 0.2% Drops (BRIMONIDINE TARTRATE 0.2% DROPS) 5 Ml Drops, 1 ML OU TID, ML 11/02/16 Discontinued Scripts Ondansetron (ZOFRAN ODT) 4 Mg Tab.rapdis, 4 MG PO every 6 hours PRN for NAUSEA/VOMITING, #15 TAB TAKE 1 TABLET BY MOUTH EVERY 12 HOURS Prov:LISA BEAVER DO 02/12/18 Scopolamine (Scopolamine) 1 Mg/3 Day Patch.td.3, 1 PATCH.72H TD Q3D PRN for DIZZINESS, #5 PATCH.72H 0 Refills Prov:PAM COVINGTON MD 11/26/17 Past Medical/Surgical History Past medical history for benign positional vertigo, ladder cancer, stroke, hypothyroidism, history of atrial fibrillation with rapid ventricular response, History of pacemaker in 2017, history of DVT, history of back surgery Smoking Status: Former Smoker Hx Substance Use Disorder: No Hx Alcohol Use: Yes (not anymore ) Constitutional Vital Sign - Last 24 Hours 05/14/18 07:49 Temp 98.2 Pulse 71 Resp 20 B/P (MAP) 154/83 Pulse Ox 91 O2 Delivery Room Air Physical Exam General/Constitutional: Patient is awake, alert, nontoxic and in no acute respiratory distress. Head: Normocephalic and atraumatic. Eyes: Conjunctival clear, Sclera are clear and anicteric. Ears:External canals are clear. Bilateral hearing aids Nares: No rhinorrhea or bleeding. Turbinates are inflamed with mucoid discharge bilaterally Oropharyngeal: Mucous membranes are moist mild pharyngeal erythema without exudate no palatal petechiae Neck: Supple, no adenopathy. Cardiovascular: Heart is regular rate and rhythm without audible murmurs, rubs or gallops. Pulmonary: Lungs are clear to auscultation bilaterally. There is a mild wheeze with cough Chest rise is symmetrical Abdomen: Soft, nontender, no guarding or peritoneal signs. Skin: No rashes, skin is warm dry and well perfused. Medical Decision Making Data Points Laboratory Hematology Test 05/14/18 08:14 Influenza Virus Type A (PCR) Negative (NEGATIVE) Influenza Virus Type B (PCR) Negative (NEGATIVE) Group A Streptococcus Screen Negative (NEGATIVE) Chemistry Test 05/14/18 08:14 Influenza Virus Type A (PCR) Negative (NEGATIVE) Influenza Virus Type B (PCR) Negative (NEGATIVE) Group A Streptococcus Screen Negative (NEGATIVE) EKG/Imaging Imaging FACILITY: [facility] PATIENT NAME: Devante Curran : 1940 MR: [id number] V: [id number] EXAM DATE: [id number] ORDERING PHYSICIAN: TRACEY MONTILLA TECHNOLOGIST: Location: [facility] - [place] Patient: Devante Curran : 1940 Visit/Account:[id number] Date of Sevice: 05/14/2018 Exam type: CHEST PA AND LAT History: cough Comparison: 02/12/2018. Findings: Both lungs are hyperinflated with chronic interstitial changes. Obscured nodule at right lung base is unchanged and was previous to characterize as a calcified hamartoma or granuloma on prior CT scan. No focal infiltrate, pleural effusion or pneumothorax. Heart size is upper limits of normal. Dual-lead pacemaker is noted. The osseous structures demonstrate degenerative changes. Mild compression deformity of T1 appears chronic. IMPRESSION: 1. No acute cardiopulmonary disease. 2. Pulmonary hyperexpansion with chronic interstitial changes are noted. 3. Benign nodule at right lung base is unchanged reportedly a granuloma or hamartoma on prior CT scan Report Dictated By: Chris Mancilla MD at 05/14/2018 8:49 AM Report E-Signed By: Chris Mancilla MD at 05/14/2018 8:52 AM WSN:[id number] ED Course/Re-evaluation ED Course 05/14/2018 8:09:58 am plan at this time will be to perform influenza and strep screening. We will give dose of Afrin nasal spray. We will also obtain a chest x-ray Decision to Disposition Date: May 14, 2018 Decision to Disposition Time: 09:03 Depart Departure Latest Vital Signs Vital Signs Date Time Temp Pulse Resp B/P (MAP) Pulse Ox O2 Delivery O2 Flow Rate FiO2 05/14/18 07:49 98.2 71 20 154/83 91 Room Air Impression: Primary Impression: Upper respiratory infection Condition: Improved Disposition: HOME OR SELF-CARE Referrals: JANN LIN MD (PCP) New Scripts Fluticasone Prop 50 Mcg Ns (FLONASE 50 MCG NS) 16 Gm [place].susp 1 SPRAY NS BID, #1 BOT 0 Refills Prov: TRACEY MONTILLA MD 05/14/18 Patient Instructions: Upper Respiratory Infection (ED) Additional Instructions: Use the afrin spray; two sprays each nostril; twice per day for 3 days then discontinue. Problem Qualifiers Primary Impression: Upper respiratory infection URI type: unspecified viral URI Qualified Codes: J06.9 - Acute upper respiratory infection, unspecified TRACEY MONTILLA MD May 14, 2018 07:44
[2018-05-14] MEDS ORDERED: DORZ10DR24 OP (07:52)
--- NOTE | 2018-05-14 08:56 | RADIOLOGY IMAGING REPORT ---
FACILITY[place] [facility] [place] PATIENT NAME: Devante Curran : 1940 MR: [id number] V: [id number] EXAM DATE: ORDERING PHYSICIAN: TRACEY MONTILLA TECHNOLOGIST: Location: [facility] - [place] Patient: Devante Curran : 1940 Visit/Account:[id number] Date of Sevice: 05/14/2018 Exam type: CHEST PA AND LAT History: cough Comparison: 02/12/2018. Findings: Both lungs are hyperinflated with chronic interstitial changes. Obscured nodule at right lung base is unchanged and was previous to characterize as a calcified hamartoma or granuloma on prior CT scan. N o focal infiltrate, pleural effusion or pneumothorax. Heart size is upper limits of normal. Dual-lead pacemaker is noted. The osseous structures demonstrat e degenerative changes. Mild compression deformity of T1 appears chronic. IMPRESSION: 1. No acute cardiopulmonary disease. 2. Pulmonary hyperexpansion with chronic interstitial changes are noted. 3. Benign nodule at right lung base is unchanged reportedly a granuloma or hamartoma on prior CT scan Report Dictated By: Chris Mancilla MD at 05/14/2018 8:49 AM Report E-Signed By: Chris Mancilla MD at 05/14/2018 8:52 AM [id number]
[2018-05-14] MEDS ORDERED: FLUT16SP19 NS (08:59)
[2018-05-14 09:00] VITALS: BP 141/70
[2018-05-14] MEDS ORDERED: OXYMETAZOLINE SPRAY 15 ML BTL ENA SCH (09:00)
== END 2018-05-14 09:12 | disposition home or self-care (01) ==
LOC: ER 07:59
DX: J06.9 Acute upper respiratory infection, unspecified (principal)
CPT/HCPCS: 71046; 87081; 87502; 87880; 99283; A9270

== ENCOUNTER 2018-11-11 23:01 | Emergency (ER) | payer MEDICARE, OTHER ==
[2016-11-03 12:42] VITALS: BMI 30.6
[~2018-11-11 23:01] MED LIST changes: +DORZ10DR24 OP; +FLUT16SP19 NS; -LOSA50TA74 PO; +LOSA50TA80 PO
--- NOTE | 2018-11-11 23:05 | ER Report ---
History and Physical Time Seen By MD: 23:04 HPI/ROS CHIEF COMPLAINT: Left upper quadrant and left rib pain HISTORY OF PRESENT ILLNESS: 78-year-old male presents ambulatory to the ER complaining of 24 hours of left upper rib pain. Patient states he fell on Wednesday, but did not develop pain until last night. Patient points to left lateral ribs. He also points to his left upper quadrant. There is no bruising, ecchymosis or crepitus. She notes changes with breathing. She is on chronic adequate elation with Coumadin. REVIEW OF SYSTEMS: Respiratory: No cough, no dyspnea. Cardiovascular: As above Gastrointestinal: No vomiting, no abdominal pain. Musculoskeletal: No back pain. Allergies: Coded Allergies: Penicillins (Verified Allergy, Mild, HIVES, 11/11/18) tramadol (Verified Adverse Reaction, Intermediate, DIZZINESS, 11/12/18) nausea, vomiting Home Meds Active Scripts Fluticasone Prop 50 Mcg Ns (FLONASE 50 MCG NS) 16 Gm [place].susp, 1 SPRAY NS BID, #1 BOT 0 Refills Prov:TRACEY MONTILLA MD 05/14/18 Metoprolol Tartrate (METOPROLOL TARTRATE) 50 Mg Tab, 50 MG PO BID, #60 TAB Prov:JANN DASILVA DO 11/04/16 Reported Medications Dorzolamide Hcl (DORZOLAMIDE HCL) 10 Ml Drops, 1 GTT OP TID 05/14/18 Metoprolol Tartrate (METOPROLOL TARTRATE) 25 Mg Tablet, 1 TAB PO BID, TAB 02/12/18 Warfarin Sodium (WARFARIN SODIUM) 2 Mg Tablet, 2 MG PO QDAY, TAB 02/12/18 Sotalol Hcl (SOTALOL) 120 Mg Tablet, 120 MG PO 11/26/17 Losartan Potassium (LOSARTAN POTASSIUM) 50 Mg Tablet, 50 MG PO QDAY 07/17/17 Cholecalciferol (Vitamin D3) (VITAMIN D3) 1,000 Unit Tablet, 2000 UNIT PO QDAY, TAB 11/09/16 Multivitamin (MULTI-VITAMIN DAILY) 1 Each Tablet, 1 EACH PO QDAY 11/02/16 Levothyroxine Sodium (Synthroid/Levothroid) 0.075 Mg Tab, 0.075 MG PO QDAY 09/21/09 Past Medical/Surgical History Past medical history for benign positional vertigo, ladder cancer, stroke, hypothyroidism, history of atrial fibrillation with rapid ventricular response, History of pacemaker in 2017, history of DVT, history of back surgery Reviewed Nurses Notes: Yes Old Medical Records Reviewed: Yes Smoking Status: Former Smoker Hx Substance Use Disorder: No Hx Alcohol Use: Yes (not anymore ) Constitutional Vital Sign - Last 24 Hours 11/11/18 11/11/18 11/11/18 11/11/18 23:05 23:12 23:16 23:30 Temp 97.8 Pulse 77 80 Resp 16 16 B/P (MAP) 172/95 172/95 (120) 141/94 (110) Pulse Ox 92 91 O2 Delivery Room Air 11/11/18 11/11/18 11/11/18 11/12/18 23:31 23:43 23:46 00:16 Pulse 81 74 71 Resp 19 12 12 Pulse Ox 92 93 96 O2 Flow Rate 2.0 11/12/18 11/12/18 11/12/18 11/12/18 00:30 00:31 00:46 00:51 Pulse 71 74 71 Resp 17 38 15 B/P (MAP) 144/91 (108) Pulse Ox 97 96 95 Physical Exam General Appearance: The patient is alert, has no immediate need for airway protection and no current signs of toxicity. Vital signs stable, afebrile, pulse ox normal HEENT: Pupils equal and round no injection. TMs normal, oropharynx without redness or exudate Respiratory: Chest is non tender, lungs are clear to auscultation. Focal tenderness and left costal margin in the left upper quadrant Cardiac: regular rate and rhythm Gastrointestinal: Abdomen is soft and focal tenderness in the left upper quadrant, no rebound or guarding no masses, bowel sounds normal. Musculoskeletal: Neck: Neck is supple and non tender. Extremities have full range of motion and are non tender. Skin: No rashes or lesions. DIFFERENTIAL DIAGNOSIS: After history and physical exam differential diagnosis was considered for chest pain including but not limited to myocardial ischemia, pericarditis pulmonary embolus, chest wall pain, pleural inflammation and pulmonary infectious causes. Additionally,abdominal pain including but not limited to appendicitis, cholecystitis, gastritis and urinary tract infection. Medical Decision Making Data Points Result Diagram: 11/11/18 3493 11/11/18 5874 Laboratory Hematology Test 11/11/18 23:12 11/11/18 23:39 Urine Color Yellow Urine Clarity Clear Urine pH 5.0 pH (4.8-9.5) Urine Specific [place] 1.024 Urine Protein Negative mg/dL (NEGATIVE) Urine Glucose (UA) Negative mg/dL (NEGATIVE) Urine Ketones Negative mg/dL (NEGATIVE) Urine Blood Small (NEGATIVE) Urine Nitrite Negative (NEGATIVE) Urine Bilirubin Negative (NEGATIVE) Urine Urobilinogen Negative mg/dL (0.2-1.9) Urine Leukocyte Esterase Negative (NEGATIVE) Urine RBC 18 /HPF (0-2/HPF) Urine WBC 2 /HPF (0-5/HPF) Urine Squamous Epithelial Cells None /LPF (</=FEW) Urine Bacteria Negative /HPF (NONE-FEW) Urine Mucus Few /HPF (NONE-FEW) Red Blood Count 4.86 M/uL (4.00-5.60) Mean Corpuscular Volume 95.0 fL (80.0-96.0) Mean Corpuscular Hemoglobin 31.9 pg (26.0-33.0) Mean Corpuscular Hemoglobin Concent 33.5 g/dL (32.0-36.0) Red Cell Distribution Width 14.1 % (11.5-14.5) Mean Platelet Volume 8.5 fL (7.2-11.1) Neutrophils (%) (Auto) 61.4 % (39.4-72.5) Lymphocytes (%) (Auto) 26.7 % (17.6-49.6) Monocytes (%) (Auto) 10.2 % (4.1-12.4) Eosinophils (%) (Auto) 1.5 % (0.4-6.7) Basophils (%) (Auto) 0.2 % (0.3-1.4) Nucleated RBC Relative Count (auto) 0.1 /100WBC Neutrophils # (Auto) 4.4 K/uL (2.0-7.4) Lymphocytes # (Auto) 1.9 K/uL (1.3-3.6) Monocytes # (Auto) 0.7 K/uL (0.3-1.0) Eosinophils # (Auto) 0.1 K/uL (0.0-0.5) Basophils # (Auto) 0.0 K/uL (0.0-0.1) Nucleated RBC Absolute Count (auto) 0.01 K/uL Prothrombin Time 27.6 seconds (12.0-14.4) Prothromb Time International Ratio 2.52 Sodium Level 139 mmol/L (137-145) Potassium Level 4.7 mmol/L (3.5-5.0) Chloride Level 110 mmol/L (98-107) Carbon Dioxide Level 23 mmol/L (22-30) Blood Urea Nitrogen 20 mg/dl (9-21) Creatinine 0.90 mg/dl (0.66-1.25) Glomerular Filtration Rate Calc > 60.0 Random Glucose 107 mg/dl (75-110) Calcium Level 8.9 mg/dl (8.4-10.2) Total Bilirubin 0.7 mg/dl (0.2-1.3) Aspartate Amino Transf (AST/SGOT) 35 U/L (0-35) Alanine Aminotransferase (ALT/SGPT) 42 U/L (0-56) Alkaline Phosphatase 89 U/L (0-126) Total Protein 6.7 g/dl (6.3-8.2) Albumin 3.8 g/dl (3.5-5.0) Amylase Level 100 U/L (0-110) Lipase 125 U/L (23-300) Chemistry Test 11/11/18 23:12 11/11/18 23:39 Urine Color Yellow Urine Clarity Clear Urine pH 5.0 pH (4.8-9.5) Urine Specific [place] 1.024 Urine Protein Negative mg/dL (NEGATIVE) Urine Glucose (UA) Negative mg/dL (NEGATIVE) Urine Ketones Negative mg/dL (NEGATIVE) Urine Blood Small (NEGATIVE) Urine Nitrite Negative (NEGATIVE) Urine Bilirubin Negative (NEGATIVE) Urine Urobilinogen Negative mg/dL (0.2-1.9) Urine Leukocyte Esterase Negative (NEGATIVE) Urine RBC 18 /HPF (0-2/HPF) Urine WBC 2 /HPF (0-5/HPF) Urine Squamous Epithelial Cells None /LPF (</=FEW) Urine Bacteria Negative /HPF (NONE-FEW) Urine Mucus Few /HPF (NONE-FEW) White Blood Count 7.2 k/uL (4.5-11.0) Red Blood Count 4.86 M/uL (4.00-5.60) Hemoglobin 15.5 g/dL (14.0-18.0) Hematocrit 46.1 % (42.0-52.0) Mean Corpuscular Volume 95.0 fL (80.0-96.0) Mean Corpuscular Hemoglobin 31.9 pg (26.0-33.0) Mean Corpuscular Hemoglobin Concent 33.5 g/dL (32.0-36.0) Red Cell Distribution Width 14.1 % (11.5-14.5) Platelet Count 153 K/uL (150-450) Mean Platelet Volume 8.5 fL (7.2-11.1) Neutrophils (%) (Auto) 61.4 % (39.4-72.5) Lymphocytes (%) (Auto) 26.7 % (17.6-49.6) Monocytes (%) (Auto) 10.2 % (4.1-12.4) Eosinophils (%) (Auto) 1.5 % (0.4-6.7) Basophils (%) (Auto) 0.2 % (0.3-1.4) Nucleated RBC Relative Count (auto) 0.1 /100WBC Neutrophils # (Auto) 4.4 K/uL (2.0-7.4) Lymphocytes # (Auto) 1.9 K/uL (1.3-3.6) Monocytes # (Auto) 0.7 K/uL (0.3-1.0) Eosinophils # (Auto) 0.1 K/uL (0.0-0.5) Basophils # (Auto) 0.0 K/uL (0.0-0.1) Nucleated RBC Absolute Count (auto) 0.01 K/uL Prothrombin Time 27.6 seconds (12.0-14.4) Prothromb Time International Ratio 2.52 Glomerular Filtration Rate Calc > 60.0 Calcium Level 8.9 mg/dl (8.4-10.2) Total Bilirubin 0.7 mg/dl (0.2-1.3) Aspartate Amino Transf (AST/SGOT) 35 U/L (0-35) Alanine Aminotransferase (ALT/SGPT) 42 U/L (0-56) Alkaline Phosphatase 89 U/L (0-126) Total Protein 6.7 g/dl (6.3-8.2) Albumin 3.8 g/dl (3.5-5.0) Amylase Level 100 U/L (0-110) Lipase 125 U/L (23-300) Coagulation Test 11/11/18 23:39 Prothrombin Time 27.6 seconds Prothromb Time International Ratio 2.52 Urinalysis Test 11/11/18 23:12 Urine Color Yellow Urine Clarity Clear Urine pH 5.0 pH (4.8-9.5) Urine Specific [place] 1.024 Urine Protein Negative mg/dL (NEGATIVE) Urine Glucose (UA) Negative mg/dL (NEGATIVE) Urine Ketones Negative mg/dL (NEGATIVE) Urine Blood Small (NEGATIVE) Urine Nitrite Negative (NEGATIVE) Urine Bilirubin Negative (NEGATIVE) Urine Urobilinogen Negative mg/dL (0.2-1.9) Urine Leukocyte Esterase Negative (NEGATIVE) Urine RBC 18 /HPF (0-2/HPF) Urine WBC 2 /HPF (0-5/HPF) Urine Squamous Epithelial Cells None /LPF (</=FEW) Urine Bacteria Negative /HPF (NONE-FEW) Urine Mucus Few /HPF (NONE-FEW) EKG/Imaging Imaging X-ray: Two-view chest x-ray 2 view left ribs was obtained. I viewed the images myself on the PACS system. My interpretation of the images is: No fracture, no pneumothorax, no effusion, pacemaker intact. The radiologist interpretation had no clinically significant variation from this interpretation. ED Course/Re-evaluation Clinical Indication for ER IV: IV Access ED Course Patient was admitted to an examination room. H&P was done. The differential diagnosis was considered. Patient with left upper quadrant and left rib pain. Patient fell 5 days ago, but had no symptoms until 24 hours ago. His INR is therapeutic at 2.5. His diagnostic laboratory studies were unremarkable. Left rib series and chest x-ray were unremarkable. Urinalysis was unremarkable Patient received good improvement from fentanyl IV. Patient's discharged home with hydrocodone 2 tablets for pain relief. He's advised to follow-up with primary care if unimproved in 3-5 days. Decision to Disposition Date: Nov 12, 2018 Decision to Disposition Time: 00:47 Depart Departure Latest Vital Signs Vital Signs Date Time Temp Pulse Resp B/P (MAP) Pulse Ox O2 Delivery O2 Flow Rate FiO2 11/12/18 00:51 71 15 95 11/12/18 00:30 144/91 (108) 11/11/18 23:43 2.0 11/11/18 23:05 97.8 Room Air Impression: Primary Impression: Rib pain on left side Additional Impressions: Left upper quadrant abdominal pain of unknown etiology Anticoagulation adequate Condition: Improved Disposition: HOME OR SELF-CARE Referrals: JANN LIN MD (PCP) New Scripts Hydrocodone Bit/Acetaminophen (HYDROCODON-ACETAMINOPHEN 5-325) 1 Each Tablet 1 EACH PO Q4-6H PRN for PAIN, #12 TAKE ONE TABLET BY MOUTH EVERY 4-6 HOURS NEEDED FOR PAIN Prov: LISA BEAVER DO 11/13/18 Patient Instructions: Chest Wall Pain (ED) Additional Instructions: Follow-up with your primary doctor on Wednesday if unimproved Use hydrocodone one half to one tablet every 4-6 hours as needed for pain Problem Qualifiers LISA BEAVER DO Nov 11, 2018 23:05
[2018-11-11] MEDS ORDERED: ONDANSETRON 4 MG/2 ML VIAL IVP ONE (23:25)
[2018-11-11] MEDS ORDERED: fentaNYL CITR 100 MCG/2 ML AMP IVP ONE (23:25)
[2018-11-11 23:51] LABS: PLATELET COUNT, AUTOMATED 153 K/uL (150-450)
[2018-11-11 23:54] LABS: INR 2.52
[2018-11-12 00:30] VITALS: BP 144/91
--- NOTE | 2018-11-12 00:32 | RADIOLOGY IMAGING REPORT ---
FACILITY: [facility] PATIENT NAME: Devante Curran : 1940 MR: [id number] V: [id number] EXAM DATE: ORDERING PHYSICIAN: LISA BEAVER TECHNOLOGIST: Location: [facility] - [place] Patient: Devante Curran : 1940 Visit/Account:[id number] Date of Sevice: 11/11/2018 Left ribs: Indication: Anterior rib pain following injury. Technique: 4 images were provided. Comparison: Chest radiographs dated 05/14/2018. Findings: There is no obvious fracture or displacement. There is uniform mineralization. No focal sof t tissue deformity is identified. 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 The cardiac pac emaker and leads appear unchanged. Impression: No definite evidence of acute deformity. Report Dictated By: Karl Austin MD at 11/12/2018 12:22 AM Report E-Signed By: Karl Austin MD at 11/12/2018 12:28 AM WSN:[id number]
--- NOTE | 2018-11-12 00:34 | RADIOLOGY IMAGING REPORT ---
FACILITY: [facility] PATIENT NAME: Devante Curran : 1940 MR: [id number] V: [id number] EXAM DATE: ORDERING PHYSICIAN: LISA BEAVER TECHNOLOGIST: Location: [facility] - [place] Patient: Devante Curran : 1940 Visit/Account:[id number] Date of Sevice: 11/11/2018 CHEST: Indication: Left chest pain following injury. Technique: Frontal and lateral views were obtained. Comparison: 05/14/2018 Skeletal and soft tissue structures: No acute deformity is identified. There is chronic degenerative disc disease and osteoarthritic spur formation in the spine. Heart and mediastinum: Within normal limits. The cardiac pacemaker appears unchanged. Lung guevara: Well-expanded. No focal or diffuse opacities. Pleural spaces: No evidence of effusion or pneumothorax. Impression: No acute process or significant change. Report Dictated By: Karl Austin MD at 11/12/2018 12:26 AM Report E-Signed By: Karl Austin MD at 11/12/2018 12:30 AM WSN:[id number]
[2018-11-12] MEDS ORDERED: ACET/HYDROC 5/325MG TH ER ONLY 2 TAB/BOTTLE PO ONE (00:50)
[2018-11-13] MEDS ORDERED: LOR5/325 PO (06:25)
== END 2018-11-12 01:05 | disposition home or self-care (01) ==
LOC: ER 23:15
DX: R07.81 Pleurodynia (principal); R10.12 Left upper quadrant pain; Z79.01 Long term (current) use of anticoagulants
CPT/HCPCS: 71046; 71100; 81001; 82150; 83690; 85025; 85610; 96374; 96375; 99284; J2405; J3010; 82040; 82247; 82310; 82374; 82435; 82565; 82947; 84075; 84132; 84155; 84295; 84450; 84460; 84520; 92953